=== PATIENT | female | born 1990 | race Caucasian/White ===

== ENCOUNTER 2016-04-10 22:28 | Emergency (ER) | payer BC ==
[2016-04-10 22:30] VITALS: BP 125/66; PULSE 66; RESP 16; TEMP 98; O2SAT 100
[2016-04-10] MEDS ORDERED: OMEP10CA PO (23:00)
[2016-04-10] MEDS ORDERED: HYOS0.128 PO (23:00)
[2016-04-10] MEDS ORDERED: ZOFR4TAB PO (23:00)
[2016-04-11] MEDS ORDERED: ONDANSETRON HCL 4 MG/2 ML VIAL ONE (00:03)
[2016-04-11 00:21] LABS: AUTOMATED NEUTROPHIL # 6.3 TH/MM3 (1.8-7.7); BASOPHIL # 0.1 TH/MM3 (0-0.2); BASOPHIL % 0.6 % (0.0-2.0); EOSINOPHIL % 0.1 % (0.0-4.0); HEMATOCRIT 31.5 % (35.0-46.0); HEMO FLAGS DIFF FINAL; LYMPH % 20.5 % (9.0-44.0); LYMPHOCYTE # 1.8 TH/MM3 (1.0-4.8); MEAN CORPUSCULAR HEMOGLOBIN 25.2 PG (27.0-34.0); MEAN CORPUSCULAR HGB CONC 33.1 % (32.0-36.0); MONO % 6.7 % (0.0-8.0); NEUT % 72.1 % (16.0-70.0); PLATELET COUNT 367 TH/MM3 (150-450); RED BLOOD COUNT 4.15 MIL/MM3 (4.00-5.30); RED CELL DISTRIBUTION WIDTH 22.9 % (11.6-17.2); WHITE BLOOD COUNT 8.8 TH/MM3 (4.0-11.0)
[2016-04-11 00:38] LABS: ALT (GPT) 96 U/L (10-53); ANION GAP 10 MEQ/L (5-15); AST (GOT) 59 U/L (15-37); BICARBONATE 21.6 MEQ/L (21.0-32.0); BLOOD UREA NITROGEN 8 MG/DL (7-18); CHLORIDE 111 MEQ/L (98-107); GLOMERULAR FILTRATION RATE 133 ML/MIN (>89); POTASSIUM 3.2 MEQ/L (3.5-5.1); SODIUM (NA) 143 MEQ/L (136-145)
[2016-04-11 00:40] LABS: ALKALINE PHOSPHATASE 50 U/L (45-117); TOTAL BILIRUBIN ADULT 0.8 MG/DL (0.2-1.0)
[2016-04-11 02:12] LABS: BLOOD, URINE NEG (NEG); GLUCOSE,URINE NEG (NEG); KETONE, URINE 80 mg/dL (NEG); MUCUS URINE FEW /lpf (OCC); NITRITE,URINE NEG (NEG); RENAL EPITHELIAL CELLS <1 /hpf; SQUAMOUS EPITHELIAL CELL URINE 3 /hpf (0-5); URINE COLOR YELLOW (YELLW/STRAW)
[2016-04-11 02:13] LABS: COMMENT (UR) CULT NOT INDICATED; CULTURE IF INDICATED CULT NOT INDICATED
[2016-04-11 07:14] VITALS: BP 144/72; PULSE 96; RESP 16; O2SAT 100
--- NOTE | 2016-04-11 07:28 | PD ---
HPI Chief Complaint: Abdominal Pain Time Seen by Provider: 07:11 Travel History International Travel<30 days: No Contact w/Intl Traveler<30days: No Traveled to known affect area: No History of Present Illness HPI This is a 25 year old female who presents to the emergency department with 2 years of intermittent nausea and vomiting. She says over the past week her symptoms have been getting worse. She reports that immediately after she eats she gets pain in her epigastrium and her left upper quadrant, sharp, moderate severity and then proceeds to vomit. She says she hasn't been able to keep anything down. She says [place] hospitalized [place] in [place] week. She's had an endoscopy and a CT scan in the past but they've been unrevealing except for some gastritis in her stomach. She does have a automobile service station mechanic following her as an outpatient and she's supposed to go for a gastric emptying study but she says she's been too sick to make the appointment as an outpatient. She's been taking Zofran at home for nausea but that has not been helping. She says she feels so dehydrated she's passed out twice. PFSH Past Medical History Anemia: Yes Diabetes: Yes (SUGAR HIGH WHEN IN HOSPITAL - NOT DX YET) Patient Takes Glucophage: No Diminished Hearing: No Medical other: Yes (GASTRITIS) Tetanus Vaccination: Unknown Influenza Vaccination: No ?: Not Tubal Ligation: Yes Past Surgical History Section: Yes (X2) Cholecystectomy: Yes Tonsillectomy: Yes Social History Alcohol Use: No Tobacco Use: No Substance Use: No Allergies-Medications (Allergen,Severity, Reaction): Coded Allergies: No Known Allergies (Unverified , 04/10/16) Reported Meds & Prescriptions Reported Meds & Active Scripts Active Erythromycin Base 250 Mg Tab 250 Mg PO TIDAC 10 Days Reglan (Metoclopramide HCl) 10 Mg Tab 10 Mg PO TIDAC Reported Hyoscyamine (Hyoscyamine Sulfate) 0.125 Mg Tab 0.125 Mg PO Q4H Omeprazole 10 Mg Cap 10 Mg PO DAILY Zofran (Ondansetron HCl) 4 Mg Tab 4 Mg PO Q12HR PRN Review of Systems Except as stated in HPI: all other systems reviewed are Neg Physical Exam Narrative GENERAL:Well appearing, no acute distress SKIN: Warm and dry. HEAD: Atraumatic. Normocephalic. EYES: Pupils equal and round. No injection or drainage. ENT: Moist mucous membranes NECK: Trachea midline. CARDIOVASCULAR: Regular rate and rhythm. No murmur appreciated. RESPIRATORY: Clear to auscultation. Breath sounds equal bilaterally. GASTROINTESTINAL: Abdomen soft, mildly tender to palpation in the epigastrium and left upper quadrant with no rebound or guarding. MUSCULOSKELETAL: No obvious deformities. NEUROLOGICAL: Awake and alert. No obvious cranial nerve deficits. Moving all extremities. PSYCHIATRIC: Appropriate mood and affect; insight and judgment normal. Data Data Last Documented VS Vital Signs Date Time Temp Pulse Resp B/P Pulse Ox O2 Delivery O2 Flow Rate FiO2 04/11/16 07:14 96 16 144/72 100 Room Air 04/10/16 22:30 98.0 Orders Complete Blood Count With Diff (04/11/16 00:00) Comprehensive Metabolic Panel (04/11/16 00:00) Lactic Acid (04/11/16 00:00) Lipase (04/11/16 00:00) Ondansetron Inj (Zofran Inj) (04/11/16 00:03) Urinalysis - C+S If Indicated (04/11/16 01:51) Erythromycin Inj (Erythromycin Inj) (04/11/16 07:30) Metoclopramide Inj (Reglan Inj) (04/11/16 07:30) Sodium Chlor 0.9% 1000 Ml Inj (Ns 1000 M (04/11/16 07:30) Ketorolac Inj (Toradol Inj) (04/11/16 07:30) Potassium Chloride (Kcl) (04/11/16 07:45) Labs Laboratory Tests Test 04/11/16 04/11/16 00:00 01:55 White Blood Count 8.8 TH/MM3 Red Blood Count 4.15 MIL/MM3 Hemoglobin 10.4 GM/DL Hematocrit 31.5 % Mean Corpuscular Volume 76.0 FL Mean Corpuscular Hemoglobin 25.2 PG Mean Corpuscular Hemoglobin 33.1 % Concent Red Cell Distribution Width 22.9 % Platelet Count 367 TH/MM3 Mean Platelet Volume 8.5 FL Neutrophils (%) (Auto) 72.1 % Lymphocytes (%) (Auto) 20.5 % Monocytes (%) (Auto) 6.7 % Eosinophils (%) (Auto) 0.1 % Basophils (%) (Auto) 0.6 % Neutrophils # (Auto) 6.3 TH/MM3 Lymphocytes # (Auto) 1.8 TH/MM3 Monocytes # (Auto) 0.6 TH/MM3 Eosinophils # (Auto) 0.0 TH/MM3 Basophils # (Auto) 0.1 TH/MM3 CBC Comment DIFF FINAL Differential Comment Sodium Level 143 MEQ/L Potassium Level 3.2 MEQ/L Chloride Level 111 MEQ/L Carbon Dioxide Level 21.6 MEQ/L Anion Gap 10 MEQ/L Blood Urea Nitrogen 8 MG/DL Creatinine 0.56 MG/DL Estimat Glomerular Filtration 133 ML/MIN Rate Random Glucose 105 MG/DL Lactic Acid Level 1.7 mmol/L Calcium Level 8.4 MG/DL Total Bilirubin 0.8 MG/DL Aspartate Amino Transf 59 U/L (AST/SGOT) Alanine Aminotransferase 96 U/L (ALT/SGPT) Alkaline Phosphatase 50 U/L Total Protein 7.4 GM/DL Albumin 4.1 GM/DL Lipase 152 U/L Urine Color YELLOW Urine Turbidity CLEAR Urine pH 6.0 Urine Specific [place] 1.017 Urine Protein NEG mg/dL Urine Glucose (UA) NEG mg/dL Urine Ketones 80 mg/dL Urine Occult Blood NEG Urine Nitrite NEG Urine Bilirubin NEG Urine Urobilinogen LESS THAN 2.0 MG/DL Urine Leukocyte Esterase MOD Urine RBC 1 /hpf Urine WBC 2 /hpf Urine Squamous Epithelial 3 /hpf Cells Urine Renal Epithelial Cells <1 /hpf Urine Mucus FEW /lpf Microscopic Urinalysis Comment CULT NOT INDICATED MDM Medical Decision Making Medical Screen Exam Complete: Yes Emergency Medical Condition: Yes Interpretation(s) Afebrile, no tachycardia, normotensive Mild anemia Mild hypokalemia Lipase is normal Urinalysis is negative for infection but does have some ketones Differential Diagnosis Gastroparesis, cyclic vomiting syndrome, pancreatitis, appendicitis, gastritis Narrative Course This is a 25-year-old female who presents the emergency department with intermittent vomiting and abdominal pain that's been going on for 2 years intermittently. She says she's been in and out of the hospital 4 times this week for the same symptoms. She was placed on a monitor and an IV was established. Labs were obtained which demonstrated a mild leukocytosis and hypokalemia with some ketones in her urine but a normal GFR an otherwise reassuring electrolytes. Given the patient's description of her symptoms as well as her history of multiple reassuring studies I suspect she may have gastroparesis or cyclic vomiting syndrome. I suggested that we do a trial of Reglan and erythromycin as she is not been empirically treated for gastroparesis thus far. Patient was started on IV fluids and given Toradol but then she wanted to leave. She says she wants to go home and be comfortable and she didn't feel like we were doing anything for her. Her father wanted me to chemically restrain her because she is concerned that her symptoms will persist , but I think she has decision-making capacity and I don't think I can hold her against her will. Patient was discharged home. Diagnosis Primary Impression: Vomiting Qualified Code: R11.2 - Intractable vomiting with nausea, unspecified vomiting type Patient Instructions: General Instructions Additional Instructions: If you develop severe or worsening abdominal pain, fever>100.4, persistent vomiting or inability to eat or drink return to the emergency department immediately. Follow up with your automobile service station mechanic without fail. Med/Other Pt SpecificInfo: Prescription(s) given Scripts Erythromycin Base 250 Mg [id number] Mg PO TIDAC 10 Days Ref 0 Prov:Nivia Arora MD 04/11/16 Metoclopramide (Reglan)10 Mg Tab10 Mg PO TIDAC #20 TAB Ref 0 Prov:Nivia Arora MD 04/11/16 Disposition: 01 DISCHARGE HOME Condition: Stable Nivia Arora MD Apr 11, 2016 07:28
[2016-04-11] MEDS ORDERED: ERYTHROMYCIN INJ 250 MG in SODIUM CHLORIDE 0.9% INJ 100 ML IV ONE (07:30)
[2016-04-11] MEDS ORDERED: KETOROLAC TROMETHAMINE 30 MG/ML (IVP) VIAL IV PUSH ONE (07:30)
[2016-04-11] MEDS ORDERED: SODIUM CHLOR 0.9% 1000 ML INJ 1,000 ML IV ONE (07:30)
[2016-04-11] MEDS ORDERED: METOCLOPRAMIDE HCL 10 MG/2 ML VIAL IV PUSH ONE (07:30)
[2016-04-11] MEDS ORDERED: POTASSIUM CHLORIDE 10 MEQ CONTROLLED RELEASE TAB PO ONE (07:45)
[2016-04-11] MEDS ORDERED: REGL10TA5 PO (08:04)
[2016-04-11] MEDS ORDERED: ERYT250T13 PO (08:04)
== END 2016-04-11 08:15 | disposition home or self-care (01) ==
LOC: NEPE 22:28
DX: R11.2 Nausea with vomiting, unspecified (principal)
CPT/HCPCS: 80053; 81001; 83605; 83690; 85025; 96361; 96374; 96375; 99284; J1885; J2405; J2765; J7030

== ENCOUNTER 2016-04-23 05:02 | Emergency (ER) | payer BC ==
[~2016-04-23] VITALS: Ht 152.4 cm; Wt 45.5 kg
[~2016-04-23 05:02] MED LIST: ERYT250T13 PO; HYOS0.128 PO; OMEP10CA PO; REGL10TA5 PO; ZOFR4TAB PO
[2016-04-23 05:04] VITALS: BP 150/88; PULSE 85; RESP 20; TEMP 98.9; O2SAT 98
[2016-04-23] MEDS ORDERED: SODIUM CHLOR 0.9% 1000 ML INJ 1,000 ML IV SCH (05:14)
[2016-04-23] MEDS ORDERED: SODIUM CHLORIDE 0.9% FLUSH 5 ML FLUSH IVF PRN (05:15)
[2016-04-23 05:24] VITALS: O2SAT 98
[2016-04-23] MEDS ORDERED: KETOROLAC TROMETHAMINE 30 MG/ML (IVP) VIAL IV PUSH ONE (05:30)
[2016-04-23] MEDS ORDERED: PROCHLORPERAZINE INJ 10 MG/2 ML VIAL IVS ONE (05:30)
--- NOTE | 2016-04-23 05:38 | PD ---
HPI Chief Complaint: Abdominal Pain Time Seen by Provider: 05:12 Travel History International Travel<30 days: No Contact w/Intl Traveler<30days: No Traveled to known affect area: No History of Present Illness HPI The patient is a 25 year old female who presents to the [facility] emergency department with a history of 12 hours of midepigastric abdominal pain that she reports is severe in intensity and sharp in character. The patient reports that she has been trying soaking in a hot water without improvement. The patient reports that the pain is similar to abdominal pain that she has had intermittently for the last 2 years. She cannot recall when she last saw her floor helper regarding this. She reports that she is suspected to have gastroparesis, however she has not completed a gastric emptying study to further evaluate. She is unsure when she last had imaging done of her abdomen, however she reports that she has had multiple CT scans done previously. The patient reports that the abdominal pain seems to trigger vomiting. She reports that she's had vomiting 2 today. She denies having any diarrhea. She reports that she has not been able to eat or drink throughout the day today. The patient denies any recent fevers, cough, congestion, neck pain, chest pain, shortness of breath, diarrhea, urinary symptoms, or neurologic symptoms. LMP: April 21, 2016 [facility] Past Medical History Narrative Medical The patient's past medical history is significant for chronic abdominal pain over the last 2 years associated with intermittent nausea and vomiting, anemia. Anemia: Yes Diabetes: Yes (SUGAR HIGH WHEN IN HOSPITAL - NOT DX YET) Diminished Hearing: No Immunizations Current: Yes ?: Not LMP: 04/21/16 Tubal Ligation: Yes Past Surgical History Narrative Surgical The patient's past surgical history is significant for 2, cholecystectomy, tonsillectomy. Section: Yes (X2) Cholecystectomy: Yes Tonsillectomy: Yes Social History Alcohol Use: No Tobacco Use: No Substance Use: No Allergies-Medications (Allergen,Severity, Reaction): Coded Allergies: Toradol (Verified Adverse Reaction, Intermediate, Irritability/Anxiety, ) Reported Meds & Prescriptions Reported Meds & Active Scripts Active Review of Systems Except as stated in HPI: all other systems reviewed are Neg General / Constitutional: No: Fever Eyes: No: Visual changes HENT: No: Headaches Cardiovascular: No: Chest Pain or Discomfort Respiratory: No: Shortness of Breath Gastrointestinal: Positive: Nausea, Vomiting, Abdominal Pain, No: Diarrhea, Hematemesis, Hematochezia, Changes in Bowel Habits, Indigestion, Loss of Appetite Genitourinary: No: Dysuria Musculoskeletal: No: Pain Skin: No Rash Neurologic: No: Weakness Psychiatric: No: Depression Endocrine: No: Polydipsia Hematologic/Lymphatic: No: Easy Bruising Physical Exam Narrative General: The patient is a well-developed, thin appearing female in no acute distress. Head and Neck exam: Head is normocephalic atraumatic. Eyes: EOMI, pupils are equal round and reactive to light. The patient's pupils are 6 mm bilaterally. Nose: Midline septum with pink mucous membranes Mouth: Dentition unremarkable. Moist mucus membranes. Posterior oropharynx is not erythematous. No tonsillar hypertrophy. Uvula midline. Airway patent. Neck: No palpable lymphadenopathy. No nuchal rigidity. No thyromegaly. Cardiovascular: Regular rate and rhythm without murmurs, gallops, or rubs. Lungs: Clear to auscultation bilaterally. No wheezes, rhonchi, or rales. Abdomen: Soft, reported tenderness on palpation of the midepigastric area and left upper quadrant of the abdomen. No tenderness on palpation of McBurney's point. Negative Chou's sign. Normal bowel sounds are audible. Extremities: No clubbing, cyanosis, or edema. 2+ pulses in all 4 extremities. Back: No spinous process tenderness to palpation. No costovertebral angle tenderness to palpation. Neurologic Exam: Grossly nonfocal. Skin Exam: No rash noted. Intact skin that is warm and dry. Data Data Last Documented VS Vital Signs Date Time Temp Pulse Resp B/P Pulse Ox O2 Delivery O2 Flow Rate FiO2 04/23/16 05:24 98 04/23/16 05:04 98.9 85 20 150/88 Room Air Orders Complete Blood Count With Diff (04/23/16 05:14) Comprehensive Metabolic Panel (04/23/16 05:14) Lipase (04/23/16 05:14) Urinalysis - C+S If Indicated (04/23/16 05:14) Iv Access Insert/Monitor (04/23/16 05:14) Ecg Monitoring (04/23/16 05:14) Oximetry (04/23/16 05:14) Sodium Chlor 0.9% 1000 Ml Inj (Ns 1000 M (04/23/16 05:14) Sodium Chloride 0.9% Flush (Ns Flush) (04/23/16 05:15) Ed Urine Pregnancytest Poc (04/23/16 05:14) C-Reactive Protein (Crp) (04/23/16 05:14) Drug Screen, Random Urine (04/23/16 05:14) Ketorolac Inj (Toradol Inj) (04/23/16 05:30) Prochlorperazine Inj (Compazine Inj) (04/23/16 05:30) Labs Laboratory Tests Test 04/23/16 04/23/16 05:15 05:30 Urine Color YELLOW Urine Turbidity HAZY Urine pH 6.5 Urine Specific [place] 1.017 Urine Protein TRACE mg/dL Urine Glucose (UA) NEG mg/dL Urine Ketones 10 mg/dL Urine Occult Blood NEG Urine Nitrite NEG Urine Bilirubin NEG Urine Urobilinogen LESS THAN 2.0 MG/DL Urine Leukocyte Esterase NEG Urine RBC 2 /hpf Urine WBC 4 /hpf Urine Squamous Epithelial <1 /hpf Cells Urine Amorphous Sediment FEW Urine Granular Casts 2 /lpf Urine Mucus FEW /lpf Microscopic Urinalysis Comment CULT NOT INDICATED Urine Opiates Screen NEG Urine Barbiturates Screen NEG Urine Amphetamines Screen NEG Urine Benzodiazepines Screen NEG Urine Cocaine Screen NEG Urine Cannabinoids Screen NEG White Blood Count 9.2 TH/MM3 Red Blood Count 4.87 MIL/MM3 Hemoglobin 12.2 GM/DL Hematocrit 36.9 % Mean Corpuscular Volume 75.9 FL Mean Corpuscular Hemoglobin 25.1 PG Mean Corpuscular Hemoglobin 33.0 % Concent Red Cell Distribution Width 23.3 % Platelet Count 340 TH/MM3 Mean Platelet Volume 8.3 FL Neutrophils (%) (Auto) 71.4 % Lymphocytes (%) (Auto) 17.7 % Monocytes (%) (Auto) 10.0 % Eosinophils (%) (Auto) 0.2 % Basophils (%) (Auto) 0.7 % Neutrophils # (Auto) 6.5 TH/MM3 Lymphocytes # (Auto) 1.6 TH/MM3 Monocytes # (Auto) 0.9 TH/MM3 Eosinophils # (Auto) 0.0 TH/MM3 Basophils # (Auto) 0.1 TH/MM3 CBC Comment DIFF FINAL Differential Comment Sodium Level 134 MEQ/L Potassium Level 3.7 MEQ/L Chloride Level 96 MEQ/L Carbon Dioxide Level 26.6 MEQ/L Anion Gap 11 MEQ/L Blood Urea Nitrogen 7 MG/DL Creatinine 0.84 MG/DL Estimat Glomerular Filtration 83 ML/MIN Rate Random Glucose 108 MG/DL Calcium Level 9.4 MG/DL Total Bilirubin 1.0 MG/DL Aspartate Amino Transf 22 U/L (AST/SGOT) Alanine Aminotransferase 37 U/L (ALT/SGPT) Alkaline Phosphatase 43 U/L C-Reactive Protein LESS THAN 0.29 MG/DL Total Protein 8.2 GM/DL Albumin 4.8 GM/DL Lipase 135 U/L MDM Medical Decision Making Medical Screen Exam Complete: Yes Emergency Medical Condition: Yes Medical Record Reviewed: Yes Differential Diagnosis Gastroparesis, versus cyclic vomiting syndrome, versus acute pancreatitis, versus gastritis, versus acid reflux Narrative Course During the course of the patients emergency department visit, the patients history, examination, and differential diagnosis were reviewed with the patient. The patient had IV access obtained and blood work sent for analysis. The patient was placed on a refrigeration specialist with oximetry and blood pressure monitoring. The patient was provided normal saline a 1 L IV fluid bolus, Compazine 5 mg IV, Toradol 15 mg IV. The patients laboratory studies were reviewed and remarkable for a white count of 9.2, hemoglobin 12.2, platelets 340 with neutrophils 71.4, monocytes 10. While the patient was awaiting the rest of her laboratory studies to be resulted , the patient received a call from her family that her child was sick. The patient elected to leave AGAINST MEDICAL ADVICE prior to completion of her workup. AMA: The risks of leaving against medical advice without further evaluation treatment were discussed with the patient. These risks include cardiac dysfunction, cardiac dysrhythmia, possible heart attack, possible stroke or . The patient indicated understanding of these risks and appeared to have the capacity to make this decision. Diagnosis Primary Impression: Abdominal pain Qualified Code: R10.13 - Epigastric pain Additional Impression: Vomiting Qualified Code: R11.2 - Non-intractable vomiting with nausea, unspecified vomiting type Disposition: AGAINST MEDICAL ADVICE Condition: Stable Blanca Sanchez MD Apr 23, 2016 05:38
[2016-04-23 05:49] LABS: AUTOMATED NEUTROPHIL # 6.5 TH/MM3 (1.8-7.7); BASOPHIL # 0.1 TH/MM3 (0-0.2); BASOPHIL % 0.7 % (0.0-2.0); EOSINOPHIL % 0.2 % (0.0-4.0); HEMATOCRIT 36.9 % (35.0-46.0); HEMO FLAGS DIFF FINAL; LYMPH % 17.7 % (9.0-44.0); LYMPHOCYTE # 1.6 TH/MM3 (1.0-4.8); MEAN CELL VOLUME 75.9 FL (80.0-100.0); MEAN CORPUSCULAR HEMOGLOBIN 25.1 PG (27.0-34.0); NEUT % 71.4 % (16.0-70.0); PLATELET COUNT 340 TH/MM3 (150-450); RED BLOOD COUNT 4.87 MIL/MM3 (4.00-5.30); RED CELL DISTRIBUTION WIDTH 23.3 % (11.6-17.2); WHITE BLOOD COUNT 9.2 TH/MM3 (4.0-11.0)
[2016-04-23 06:00] LABS: AMPHETAMINE, URINE NEG (NEG); BARBITURATES, URINE NEG (NEG); COCAINE, URINE NEG (NEG)
[2016-04-23 06:06] LABS: ALKALINE PHOSPHATASE 43 U/L (45-117)
[2016-04-23 06:07] LABS: BLOOD, URINE NEG (NEG); COMMENT (UR) CULT NOT INDICATED; CULTURE IF INDICATED CULT NOT INDICATED; GLUCOSE,URINE NEG (NEG); GRANULAR CAST, URINE 2 /lpf; KETONE, URINE 10 mg/dL (NEG); MUCUS URINE FEW /lpf (OCC); NITRITE,URINE NEG (NEG); PH, URINE 6.5 (5.0-8.5); SQUAMOUS EPITHELIAL CELL URINE <1 /hpf (0-5); URINE COLOR YELLOW (YELLW/STRAW)
[2016-04-23 06:13] LABS: ALT (GPT) 37 U/L (10-53); ANION GAP 11 MEQ/L (5-15); AST (GOT) 22 U/L (15-37); BICARBONATE 26.6 MEQ/L (21.0-32.0); BLOOD UREA NITROGEN 7 MG/DL (7-18); CHLORIDE 96 MEQ/L (98-107); GLOMERULAR FILTRATION RATE 83 ML/MIN (>89); SODIUM (NA) 134 MEQ/L (136-145)
[2016-04-23 06:14] LABS: POTASSIUM 3.7 MEQ/L (3.5-5.1)
== END 2016-04-23 06:00 | disposition left against medical advice (07) ==
LOC: NEPE 05:02
DX: R10.13 Epigastric pain (principal); R11.2 Nausea with vomiting, unspecified
CPT/HCPCS: 80053; 80307; 81001; 83690; 84703; 85025; 86140; 96374; 99284; J0780; J7030